=== PATIENT | male | born 1965 | race Asian ===

== ENCOUNTER 2024-05-09 17:20 | Emergency (ER) | payer OTHER ==
--- NOTE | 2024-05-09 18:34 | ED ---
Dizziness HPI - General Chief Complaint: Dizziness Stated Complaint: Dizziness Time Seen by Provider: 05/09/24 17:49 Source: patient, family Mode of arrival: ambulatory Limitations: no limitations - History of Present Illness Initial Comments: This patient is a 58-year-old man who presents to have evaluation for constellation of symptoms that came on today. The patient states that he was stressed and then he was feeling dizzy or lightheaded felt like he was going to pass out. Patient also felt warm and clammy. Patient's ex- stated that his color looked off. Patient denied chest pain, dyspnea, palpitations or syncope. MD Complaint: lightheadedness -: hour(s) Timing: sudden onset Description: lightheadedness, off-balance Severity: moderate Improves With: nothing Worsens With: nothing - Related Data Allergies Allergy/AdvReac Type Severity Reaction Status Date / Time No Known Allergies Allergy Verified 05/09/24 17:35 Review of Systems ROS Statement: Those systems with pertinent positive or pertinent negative responses have been documented in the HPI. ROS Other: All systems not noted in ROS Statement are negative. Constitutional: Denies: fever, chills, weakness Eyes: Denies: vision change Respiratory: Denies: cough, dyspnea Cardiovascular: Denies: chest pain, palpitations, dyspnea on exertion, edema, syncope Gastrointestinal: Denies: abdominal pain, nausea, vomiting, diarrhea, melena, hematochezia Genitourinary: Denies: dysuria, hematuria Musculoskeletal: Denies: back pain Skin: Denies: rash Neurological: Reports: vertigo. Denies: headache, weakness, numbness Psychiatric: Reports: anxiety. Denies: depression, suicidal thoughts Past Medical History Past Medical History: Hypertension Additional Past Medical History / Comment(s): allergies, inguinal hernia Past Surgical History: No Surgical Hx Reported Smoking Status: Current every day smoker Past Alcohol Use History: Daily Past Drug Use History: None Reported General Exam Limitations: no limitations General appearance: alert, in no apparent distress Head exam: Present: atraumatic, normocephalic Eye exam: Present: normal appearance. Absent: scleral icterus, conjunctival injection ENT exam: Present: mucous membranes dry Neck exam: Present: normal inspection Respiratory exam: Present: wheezes (Mild expiratory). Absent: respiratory distress, rales, rhonchi, stridor, chest wall tenderness, accessory muscle use Cardiovascular Exam: Present: regular rate, normal rhythm, normal heart sounds. Absent: systolic murmur, diastolic murmur, rubs, gallop GI/Abdominal exam: Present: soft. Absent: distended, tenderness, guarding, rebound, rigid, mass, pulsatile mass Extremities exam: Present: normal inspection, normal capillary refill. Absent: pedal edema, calf tenderness Back exam: Present: normal inspection. Absent: CVA tenderness (R), CVA tenderness (L) Neurological exam: Present: alert, oriented X3, CN II-XII intact. Absent: motor sensory deficit Skin exam: Present: warm, dry, intact, normal color. Absent: rash Course Vital Signs 05/09/24 05/09/24 05/09/24 17:35 19:49 21:13 Temperature 98.8 F 98.4 F Pulse Rate 127 H 96 98 Respiratory 20 17 15 Rate Blood Pressure 159/101 150/103 161/107 O2 Sat by Pulse 99 97 95 Oximetry EKG Findings - EKG Results: EKG: interpreted by ERMD, sinus rhythm, normal ST/T EKG shows: tachycardia (Rate 111 bpm) - Blocks, Farina, Hypertrophy, ST Abn: QRS axis and voltage: left axis deviation (-30 to -90) Chamber hypertrophy or enlargement: only voltage criteria for left ventricular hypertrophy Medical Decision Making - Medical Decision Making The patient had two-view chest x-ray that I interpreted as showing no acute infiltrate, pneumothorax, congestive heart failure. Was pt. sent in by a medical professional or institution (, PA, MEDICARE CONTACT SPECIALIST, urgent care, hospital, or residential...) When possible be specific @ -[No] Did you speak to anyone other than the patient for history (EMS, parent, family, police, friend...)? What history was obtained from this source @ -[No] Did you review nursing and triage notes (agree or disagree)? Why? @ -[I reviewed and agree with nursing and triage notes] Were old charts reviewed (outside hosp., previous admission, EMS record, old EKG, old radiological studies, urgent care reports/EKG's, residential records)? Report findings @ -[No old charts were reviewed] Differential Diagnosis (chest pain, altered mental status, abdominal pain women, abdominal pain men, vaginal bleeding, weakness, fever, dyspnea, syncope, headache, dizziness, GI bleed, back pain, seizure, CVA, palpatations, mental health, musculoskeletal)? @ -[Differential Dizziness: Benign paroxysmal positional Vertigo, Meniere's disease, otitis media, acoustic neuroma, vertebrobasilar insufficiency, cerebellar stroke, encephalitis, hypovolemic, arrhythmia, coronary artery syndrome, anemia, this is not meant to be an all-inclusive list EKG interpreted by me (3pts min.). @ -[I interpreted as above] X-rays interpreted by me (1pt min.). @ -[I interpreted as above CT interpreted by me (1pt min.). @ -[None done] U/S interpreted by me (1pt. min.). @ -[None done] What testing was considered but not performed or refused? (CT, X-rays, U/S, labs)? Why? @ -[None] What meds were considered but not given or refused? Why? @ -[None] Did you discuss the management of the patient with other professionals (professionals i.e. , PA, MEDICARE CONTACT SPECIALIST, lab, RT, psych nurse, manager social work, bulb filler, teacher, emergency response officer, ed case manager)? Give summary @ -[No] Was smoking cessation discussed for >3mins.? @ -[No] Was critical care preformed (if so, how long)? @ -[No] Were there social determinants of health that impacted care today? How? (Homelessness, low income, unemployed, alcoholism, drug addiction, transportation, low edu. Level, literacy, decrease access to med. care, alf, rehab)? @ -[No] Was there de-escalation of care discussed even if they declined (Discuss DNR or withdrawal of care, Hospice)? DNR status @ -[No] What co-morbidities impacted this encounter? (DM, HTN, Smoking, COPD, CAD, Cancer, CVA, ARF, Chemo, Hep., AIDS, mental health diagnosis, sleep apnea, morbid obesity)? @ -[None] Was patient admitted / discharged? Hospital course, mention meds given and rout e, prescriptions, significant lab abnormalities, going to OR and other pertinent info. @ -[Patient is 58-year-old man with feeling of dizziness or lightheadedness that came on accompanying stressful situation. The patient feeling better on reevaluation. I did offer admission to have cardiology evaluation, the patient would like to go home, stating will have close follow-up and return if symptoms recur. Undiagnosed new problem with uncertain prognosis? @ -[Suspect mild COPD Drug Therapy requiring intensive monitoring for toxicity (Heparin, Nitro, Insulin, Cardizem)? @ -[No] Were any procedures done? @ -[No] Diagnosis/symptom? @ -[Acute hyperglycemia Acute tachycardia Dehydration Acute, or Chronic, or Acute on Chronic? @ -[Acute Uncomplicated (without systemic symptoms) or Complicated (systemic symptoms)? @ -[Complicated by systemic dizziness Side effects of treatment? @ -[No] Exacerbation, Progression, or Severe Exacerbation? @ -[No] Poses a threat to life or bodily function? How? (Chest pain, USA, MD, pneumonia, PE, COPD, DKA, ARF, appy, cholecystitis, CVA, Diverticulitis, Homicidal, Suicidal, threat to staff... and all critical care pts) @ -[There is some risk, patient should have cardiology evaluation - Lab Data Result diagrams: 05/09/24 18:20 05/09/24 18:20 Lab Results 05/09/24 05/09/24 05/09/24 Range/Units 18:17 18:18 18:20 WBC 9.2 (3.8-10.6) k/uL RBC 6.16 H (4.30-5.90) m/uL Hgb 14.6 (13.0-17.5) gm/dL Hct 46.2 (39.0-53.0) % MCV 75.0 L (80.0-100.0) fL MCH 23.7 L (25.0-35.0) pg MCHC 31.6 (31.0-37.0) g/dL RDW 14.9 (11.5-15.5) % Plt Count 152 (150-450) k/uL MPV 7.1 Neutrophils % 65 % Lymphocytes % 22 % Monocytes % 10 % Eosinophils % 0 % Basophils % 0 % Neutrophils # 6.0 (1.3-7.7) k/uL Lymphocytes # 2.0 (1.0-4.8) k/uL Monocytes # 0.9 (0-1.0) k/uL Eosinophils # 0.0 (0-0.7) k/uL Basophils # 0.0 (0-0.2) k/uL Hypochromasia Slight Microcytosis Slight Sodium (137-145) mmol/L Potassium (3.5-5.1) mmol/L Chloride (98-107) mmol/L Carbon Dioxide (22-30) mmol/L Anion Gap mmol/L BUN (9-20) mg/dL Creatinine (0.66-1.25) mg/dL Est GFR (CKD-EPI)AfAm (>60 ml/min/1.73 sqM) Est GFR (CKD-EPI)NonAf (>60 ml/min/1.73 sqM) Glucose (74-99) mg/dL Plasma Lactic Acid Melquiades (0.7-2.0) mmol/L Calcium (8.4-10.2) mg/dL Total Bilirubin (0.2-1.3) mg/dL AST (17-59) U/L ALT (4-49) U/L Alkaline Phosphatase (38-126) U/L Troponin I (0.000-0.034) ng/mL Total Protein (6.3-8.2) g/dL Albumin (3.5-5.0) g/dL Blood Type A Positive Blood Type Confirm A Positive Blood Type Recheck No Previous Record Bld Type Recheck Status CABO Indicated Antibody Screen NEGATIVE Spec Expiration Date 05/12/2024 - 231605/09/24 05/09/24 05/09/24 Range/Units 18:20 18:20 18:20 WBC (3.8-10.6) k/uL RBC (4.30-5.90) m/uL Hgb (13.0-17.5) gm/dL Hct (39.0-53.0) % MCV (80.0-100.0) fL MCH (25.0-35.0) pg MCHC (31.0-37.0) g/dL RDW (11.5-15.5) % Plt Count (150-450) k/uL MPV Neutrophils % % Lymphocytes % % Monocytes % % Eosinophils % % Basophils % % Neutrophils # (1.3-7.7) k/uL Lymphocytes # (1.0-4.8) k/uL Monocytes # (0-1.0) k/uL Eosinophils # (0-0.7) k/uL Basophils # (0-0.2) k/uL Hypochromasia Microcytosis Sodium 134 L (137-145) mmol/L Potassium 5.1 (3.5-5.1) mmol/L Chloride 97 L (98-107) mmol/L Carbon Dioxide 23 (22-30) mmol/L Anion Gap 14 mmol/L BUN 8 L (9-20) mg/dL Creatinine 0.56 L (0.66-1.25) mg/dL Est GFR (CKD-EPI)AfAm >90 (>60 ml/min/1.73 sqM) Est GFR (CKD-EPI)NonAf >90 (>60 ml/min/1.73 sqM) Glucose 268 H (74-99) mg/dL Plasma Lactic Acid Melquiades 1.7 (0.7-2.0) mmol/L Calcium 9.1 (8.4-10.2) mg/dL Total Bilirubin 1.5 H (0.2-1.3) mg/dL AST 112 H (17-59) U/L ALT 91 H (4-49) U/L Alkaline Phosphatase 91 (38-126) U/L Troponin I <0.012 (0.000-0.034) ng/mL Total Protein 8.1 (6.3-8.2) g/dL Albumin 4.8 (3.5-5.0) g/dL Blood Type Blood Type Confirm Blood Type Recheck Bld Type Recheck Status Antibody Screen Spec Expiration Date Disposition Clinical Impression: Dehydration, Hyperglycemia, Tachycardia Disposition: HOME SELF-CARE Condition: Good Instructions (If sedation given, give patient instructions): Nondiabetic Hyperglycemia (ED), Dizziness (ED) Additional Instructions: I would recommend decreasing alcohol consumption and also having blood sugar rechecked in the morning in 2 days to ensure that it is not elevated. Today's finding does indicate risk of diabetes being present though not diagnostic as this is not a fasting blood sugar. Return to the emergency department if your symptoms recur or if any new symptoms develop. I would also recommend following up with the athletic training internship to schedule a stress test. Is patient prescribed a controlled substance at d/c from ED?: No Referrals: None,Stated [Primary Care Provider] - 1-2 days Curtis Bower DO [REFERRING] - 1-2 days Reji Kimble MD [STAFF PHYSICIAN] - 1-2 days
--- NOTE | 2024-05-09 18:37 | XR ---
EXAMINATION TYPE: XR chest 2V DATE OF EXAM: 05/09/2024 6:12 PM CLINICAL INDICATION:Male, 58 years old with history of chest pain; [facility] COMPARISON: None TECHNIQUE: XR chest 2V. Frontal and lateral views of the chest.. FINDINGS: Lines/Tubes/Devices: No indwelling lines are seen. Heart/mediastinum: Heart size is normal. Mild to moderate tortuosity of the aorta. Mediastinal silho uette appears to be normal. Pulmonary vascularity: Not increased, Lungs/Pleura: Lungs appear hyperinflated with interstitial coarsening, findings suggestive of COPD/em physema. There is no evidence of pleural effusion, focal consolidation, or pneumothorax. Musculoskeletal: No acute osseous abnormality demonstrated in the limits of the exam. Mild degenerati ve changes. Other findings: None. IMPRESSION: Changes of COPD/emphysema suggested, without evidence of acute superimposed airspace disease. [facility], , 05/09/2024 6:35 PM
[2024-05-09] MEDS: ASPIRIN 81 MG PO STA (18:39)
[2024-05-09 18:40] LABS: Basophils % (A) 0 %; Eosinophils % (A) 0 %; HCT 46.2 % (39.0-53.0); HGB 14.6 gm/dL (13.0-17.5); Hypochromasia Slight; Lymphocytes % (A) 22 %; MCH 23.7 pg (25.0-35.0); MCHC 31.6 g/dL (31.0-37.0); Mean Platelet Volume 7.1; Microcytosis Slight; Monocytes # (A) 0.9 k/uL (0-1.0); Monocytes % (A) 10 %; Neutrophils % (A) 65 %; Platelet Count 152 k/uL (150-450); RBC 6.16 m/uL (4.30-5.90); RDW 14.9 % (11.5-15.5); WBC 9.2 k/uL (3.8-10.6)
[2024-05-09] MEDS: LORazepam 2 MG/ML INJ IV STA (18:40)
[2024-05-09] MEDS: SODIUM CHLORIDE 0.9% 500 ML 500 ML IV STA ×2 (18:40)
[2024-05-09 18:50] LABS: ALT 91 U/L (4-49); African American GFR (CKD) >90 (>60 ml/min/1.73 sqM); Albumin 4.8 g/dL (3.5-5.0); Anion Gap 14 mmol/L; Blood Urea Nitrogen 8 mg/dL (9-20); Calcium 9.1 mg/dL (8.4-10.2); Carbon Dioxide 23 mmol/L (22-30); Chloride 97 mmol/L (98-107); Glucose 268 mg/dL (74-99); Non-African American GFR(CKD) >90 (>60 ml/min/1.73 sqM); Sodium 134 mmol/L (137-145); Total Protein 8.1 g/dL (6.3-8.2)
[2024-05-09 18:58] LABS: AST 112 U/L (17-59); Alkaline Phosphatase 91 U/L (38-126); Potassium 5.1 mmol/L (3.5-5.1); Total Bilirubin 1.5 mg/dL (0.2-1.3)
[2024-05-09] MEDS: SODIUM CHLORIDE 0.9% 1,000 ML IV ONE (19:45)
[2024-05-09 19:51] VITALS: TEMP 98.4
[2024-05-09] MEDS: LORazepam 1 MG TAB PO STA (21:10)
[2024-05-09 21:15] VITALS: BP 161/107; PULSE 98; RESP 15
== END 2024-05-09 21:14 | disposition home or self-care (01) ==
LOC: EC 17:20
DX: E86.0 Dehydration (principal); R73.9 Hyperglycemia, unspecified; R00.0 Tachycardia, unspecified; F17.200 Nicotine dependence, unspecified, uncomplicated
CPT/HCPCS: 36415; 93005; 86900; 86901; 80053; 83605; 84484; 85025; 86850; 71046; 99284; 96374; 96361 ×2; J2060